=== PATIENT | male | born 2000 | race Hispanic/Latino ===

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

== ENCOUNTER 2024-11-30 10:45 | Emergency (ER) | payer SELFPAY ==
[~2024-11-30] VITALS: Ht 180.3 cm; Wt 189.1 kg
[2024-11-30 10:48] VITALS: BP 160/93; PULSE 105; RESP 18; TEMP 98.3
[2024-11-30] MEDS: BENZONATATE 100 MG CAPSULE PO STA (11:21)
[2024-11-30] MEDS: FAMOTIDINE 20MG VIAL IV STA (11:22)
[2024-11-30] MEDS: ketOROlac 15MG/ML VIAL (15MG/ML) IV STA (11:22)
[2024-11-30] MEDS: acetaMINOPHEN 325 MG TAB PO STA (11:22)
[2024-11-30] MEDS: 0.9%NACL 1000ML 1,000 ML IV STA (11:23)
--- NOTE | 2024-11-30 11:26 | ERN ---
ED Note History of Present Illness Stated Complaint: BACK PAIN, ABD PAIN, CHILLS Chief Complaint: Cough Time Seen by MD: 10:50 Time Seen by Midlevel: 10:55 Dictation: 24 y/o male without no medical history coming c/o cough, congestion, chills, fever since Friday. Pt states he recently took care of his niece that had similar symptoms. Denies any n/v, states has had 1 episode of loose stools, non bloody. Denies any SOB, CP, RODRIGUEZ, Neck pain. Allergies: Coded Allergies: No Known Drug Allergies (Unverified Allergy, Unknown, 04/11/19) Past Medical History Past Medical History: No Pertinent History Surgical History: None Review of System Dictation CONSTITUTIONAL: Positive chills, positive fever, no weakness, no diaphoresis, no malaise. HEAD/FACE: No signs of trauma. EENT: No eye pain, no blurred vision, no tearing, no double vision, no ear pain, no ear discharge, no nose pain, no nasal congestion, no throat pain, no throat swelling, no mouth pain. RESPIRATORY: Positive cough, no orthopnea, no SOB, no stridor, no wheezing. CARDIOVASCULAR: No chest pain, no edema, no palpitations, no syncope. GASTROINTESTINAL/ABDOMINAL: No abdominal pain, no constipation, no diarrhea, no nausea, no vomiting. GENITOURINARY: No abnormal discharge, no dysuria, no frequent urination, no hematuria. No complaints of pain in the genitals. MUSCULOSKELETAL: No back pain, no gout, no joint pain, no joint swelling, no muscle pain, no muscle stiffness, no neck pain. INTEGUMENTARY: No change in color, no change in hair/nails, no dryness, no lesion, no lumps, no rash. NEUROLOGICAL/PSYCH: No anxiety, not depressed, no emotional problem, no headache, no numbness, no pre-existing deficit, no history of seizures, no tremors, no weakness. HEMATOLOGIC/LYMPHATIC: Not anemic, no history of blood clots, no apparent bleeding, no bruising, glands not swollen. All Systems Negative, Except as Noted. Review of Systems: was completed Initial Vital Sign VS Vital Signs Date Time Temp Pulse Resp B/P (MAP) Pulse Ox O2 Delivery O2 Flow Rate FiO2 11/30/24 10:48 98.2 105 18 160/93 99 Room Air 0 Physical Exam Dictation VITAL SIGNS: Reviewed. GENERAL APPEARANCE: Alert, oriented x3, no acute distress, obese. HEAD AND FACE: Non-traumatic. EYES: PERRL, pink conjunctivas, eyelid no trauma, anterior chamber clear. EARS: Pinnas intact and no signs of trauma or erythema. Ear canals clear and no discharge. TMs no erythema. NOSE: No discharge, no bleeding. OROPHARYNX: Mouth normal, teeth no caries, tongue pink. Pharynx clear, no erythema. Tonsils no exudates, no abscesses noted. Mucous membrane moist. NECK: Supple, non-tender, no thyromegaly, no masses, no JVD, no bruits. BREAST: Deferred. CHEST: No tenderness, no crepitus, no paradoxical movement, no retractions. LUNGS: Clear, well-ventilated, symmetric, no rales, no wheezing, no rhonchi, no stridor, good breath sounds bilaterally. HEART: Regular rate, regular rhythm, no murmur, no gallops. VASCULAR: No peripheral edema. ABDOMEN: Soft, positive bowel sounds, nondistended, no guarding, nontender, no rebound, no masses no hepatomegaly, no splenomegaly, no Woodward's sign, no hernias. RECTAL: Deferred. GENITAL: Deferred. NEUROLOGICAL: Normal speech, gross motor function intact, gross sensory function intact. MUSCULOSKELETAL: Neck nontender, full range of motion, back nontender, full range of motion. EXTREMITIES: Nontender, full range of motion. SKIN: Color pink, dry, no turgor, no rash, no lacerations, no abrasions, no contusions. LYMPHATICS: Deferred. Results (Laboratory/Radiology) Laboratory/Radiology Laboratory Tests Test 11/30/24 10:55 Influenza Type A Antigen Negative For Type A Influenza Type B Antigen Negative For Type B SARS-CoV-2, RNA, NAAT NEGATIVE SARS CoV-2 Group A Streptococcus Rapid negative (NEGATIVE) Labs Reviewed?: Yes ED Course ED Course Orders Procedure Category Date Status Time Influenza Type A & B, LAB 11/30/24 Complete Rapid 10:59 Covid Rna Naat LAB 11/30/24 Complete 10:59 Rapid (Group A Strep) LAB 11/30/24 Complete 10:59 0.9%Nacl 1000ml (Ns PHA 11/30/24 Complete 1000ml) 10:59 Acetaminophen 325 Tab PHA 11/30/24 Complete (Tylenol 325mg Tab 10:59 Ketorolac PHA 11/30/24 Complete Tromethamine 15mg/Ml 10:59 Famotidine 20mg Vial PHA 11/30/24 Complete (Pepcid 20mg Vial) 10:59 Benzonatate 100 Mg PHA 11/30/24 Complete Capsule (Tessalon 100 10:59 Current Medications Medications (Trade) Dose Ordered Sig/Mauricio Route PRN Reason Start Time Stop Time Status Last Admin Dose Admin Acetaminophen (TYLenol 325MG TAB) 650 mg ONCE STAT PO 11/30/24 10:59 11/30/24 11:03 DC 11/30/24 11:22 Benzonatate (Tessalon 100mg Caps) 200 mg ONCE STAT PO 11/30/24 10:59 11/30/24 11:03 DC 11/30/24 11:21 Famotidine (Pepcid 20mg Vial) 20 mg ONCE STAT IV 11/30/24 10:59 11/30/24 11:03 DC 11/30/24 11:22 Ketorolac Tromethamine (toRADol) 15 mg ONCE STAT IV 11/30/24 10:59 11/30/24 11:03 DC 11/30/24 11:22 Sodium Chloride 1,000 ml @ 1,000 mls/hr Q1H STAT IV 11/30/24 10:59 11/30/24 11:58 DC 11/30/24 11:23 Vital Signs Date Time Temp Pulse Resp B/P (MAP) Pulse Ox O2 Delivery O2 Flow Rate FiO2 11/30/24 10:48 98.2 105 18 160/93 99 Room Air 0 Medical Decision Making MDM MDM: 24 y/o male without no medical history coming c/o cough, congestion, chills, fever since Friday. Pt states he recently took care of his niece that had similar symptoms. Denies any n/v, states has had 1 episode of loose stools, non bloody. Denies any SOB, CP, RODRIGUEZ, Neck pain. Swabs are negative. Discussed with the patient this could be viral syndrome, educated symptomatic control [id number] like Tylenol, Motrin, Mucinex, Sudafed. Patient verbalized understanding, angina questions. Differential diagnosis: Influenza, COVID, strep, viral syndrome, URI Rationale: Tests considered and ordered secondary to shared decision making include: Previous outside records reviewed: Old ER visits. Risk of complication and/or morbidity or mortality of patient management: None Medications-Per medication reconciliation Need for hospitalization: Patient does not meet criteria for hospitalization. Need for emergency major/minor surgery: No There are no social concerns with this patient. Prescription drug management Prescriptions will include symptomatic care Patient's prior external medical records from other ER visits were reviewed by me as indicated. Prior testing and results from previous visits were reviewed. Prior tests were taken into account with medical decision making and resource utilization, independent historian/historians were used to obtain complete medical history. I independently interpreted the test that were performed, results were reviewed by me and considered findings on radiology if ordered. Medical management and examination interpretation discussions were had by me with other qualified healthcare professionals as indicated for the patient's care. DX & DISP Disposition: Discharge Departure Impression: Primary Impression: Viral syndrome Condition: Stable Additional Instructions: Your swabs are negative. More than likely this is viral syndrome. No need for antibiotics. Can take [id number] medications like Tylenol, Motrin, cough medication, recent echo state of five for congestion. Stay hydrated. Return to the hospital if you has a any worsening symptoms. Referrals: SELF,REFERRAL (PCP) Time of Disposition: 12:07 I have reviewed the case, and I agree with, Diagnosis and Plan FORTUNATO LOPEZ NP Nov 30, 2024 11:26
[2024-11-30 11:32] LABS: RAPID GROUP A STREP negative (NEGATIVE)
[2024-11-30 11:35] LABS: SARS-CoV-2, RNA, NAAT NEGATIVE SARS CoV-2 (NEGATIVE)
[2024-11-30 11:41] LABS: INFLUENZA TYPE A Negative For Type A (NEGATIVE); INFLUENZA TYPE B Negative For Type B (NEGATIVE)
== END 2024-11-30 12:28 | disposition home or self-care (01) ==
LOC: EDH 10:45
DX: B34.9 Viral infection, unspecified (principal); Z20.822 Contact with and (suspected) exposure to COVID-19
CPT/HCPCS: 99284; 96374; 87635; 96375; 87880; 87804 ×2; J1885; J3490; J7030

== ENCOUNTER 2025-01-24 22:48 | Emergency (ER) | payer SELFPAY ==
[~2025-01-24] VITALS: Ht 177.8 cm; Wt 216.4 kg
--- NOTE | 2025-01-24 23:22 | ERN ---
ED Note History of Present Illness Stated Complaint: C/O LUQ PAIN WITH HEADACHE Chief Complaint: Abdominal Pain Time Seen by MD: 22:50 Time Seen by Midlevel: 22:50 Dictation: The patient is a 24-year-old male with no past medical history who presents to the emergency department with complaints of left upper abdominal pain, low appetite onset today. Patient reports pain started after he sneezed. Reports that he has been having nasal congestion and nonproductive cough since yesterday. Denies any fevers, denies any diarrhea or vomiting. Allergies: Coded Allergies: No Known Drug Allergies (Unverified Allergy, Unknown, 04/11/19) Past Medical History Past Medical History: No Pertinent History Surgical History: None RN Note Reviewed/Agreed w/PFSH: Yes Review of System Dictation Constitutional: Negative for fever,chills, and weight loss Eyes: Negative for injury, pain,redness, and discharge ENT: Negative for injury,pain or swelling Cardiovascular: Negative for chest pain, palpitations, and edema Respiratory: Negative for shortness of breath,and wheezing, positive for cough, congestion Abdomen/GI: Negative for , nausea, vomiting, diarrhea, and constipation positive for abdominal pain Back: Negative for injury and pain : Negative for injury, bleeding and discharge MS/Extremity: Negative for injury and deformity Skin: Negative for rash, and discoloration Neuro: Negative for headache, weakness, numbness, tingling, and seizure Psych: Negative for suicide ideation, homicidal ideation, and hallucinations Initial Vital Sign VS Vital Signs Date Time Temp Pulse Resp B/P (MAP) Pulse Ox O2 Delivery O2 Flow Rate FiO2 01/24/25 22:49 98.4 82 24 160/70 98 Room Air 01/24/25 23:50 0 21 Physical Exam Dictation Vital Signs reviewed General Appearance: Alert, oriented x 3, no acute distress, well developed, no urished. Head and Face: non-traumatic. Eyes: PERRL, pink conjunctivas, eyelid no trauma, anterior chamber with arcus senilis. Ears: Pinnas intact and no signs of trauma or erythema ear canals clear and no discharge TM no erythema Nose: No discharge, no bleeding. Oropharynx: Mouth normal, tongue pink. pharynx clear,no erythema, tonsils no exudates, no abscesses noted, mucous me mbrane moist Neck: Supple, non-tender, no thyromegaly, no masses, no JVD, no bruits Breast:Deferred Chest:No tenderness, no crepitus, no paradoxical movement, no retractions Lungs:Clear, well-ventilated, symmetric, no rales, no wheezing, no rhonchi, no stridor, good breath sounds bilaterally Heart: Regular rate, regular rhythm, no murmur, no gallops Vascular: no peripheral edema, Abdomen: Soft, positive bowel sounds, nondistended, no guarding, If upper abdominal tenderness, no rebound, no masses no hepatomegaly, no splenomegaly, no Woodward's sign, no hernias. Rectal: Deferred Genital: Deferred Neurological: Normal speech, motor function intact, sensory function intact Musculoskeletal: Neck nontender, full range of motion, back nontender, full range of motion, Extremities: nontender, full range of motion Skin: Color pink, dry, no turgor, no rash, no lacerations, no abrasions, no contusions. Lymphatic: Deferred Results (Laboratory/Radiology) Laboratory/Radiology Laboratory Tests Test 01/24/25 23:37 01/25/25 00:06 Influenza Type A Antigen Negative For Type A Influenza Type B Antigen Negative For Type B SARS-CoV-2 Antigen (Rapid) PRESUMPTIVE NEGATIVE White Blood Count 7.5 K/uL (4.8-10.8) Red Blood Count 4.83 MIL/uL (4.50-6.20) Hemoglobin 14.2 g/dL (14.0-18.0) Hematocrit 42.4 % (42-54) Mean Corpuscular Volume 87.8 fL (79-99) Mean Corpuscular Hemoglobin 29.4 pg (27.0-33.0) Mean Corpuscular Hemoglobin Concent 33.5 g/dL (32.0-36.0) Red Cell Distribution Width 14.4 % (11.0-15.5) Platelet Count 227 K/uL (130-400) Mean Platelet Volume 9.0 fL (7.5-10.5) Immature Granulocyte % (Auto) 0.3 % (0-1) Neutrophils (%) (Auto) 45.3 % (40.0-77.0) Lymphocytes (%) (Auto) 32.7 % (21.0-51.0) Monocytes (%) (Auto) 13.7 % (3.0-13.0) H Eosinophils (%) (Auto) 7.1 % (0.0-8.0) Basophils (%) (Auto) 0.9 % (0.0-5.0) Neutrophils # (Auto) 3.4 K/uL (1.8-7.7) Lymphocytes # (Auto) 2.4 K/uL (1.0-4.8) Monocytes # (Auto) 1.0 K/uL (0.1-1.0) Eosinophils # (Auto) 0.53 K/uL (0.00-0.70) Basophils # (Auto) 0.07 K/uL (0.00-0.20) Absolute Immature Granulocyte (auto 0.02 K/uL (0-1) Nucleated Red Blood Cells 0.0 % (0.0-0.19) Sodium Level 139 mmol/L (136-145) Potassium Level 4.3 mmol/L (3.5-5.1) Chloride Level 103 mmol/L (101-111) Carbon Dioxide Level 26 mmol/L (21-32) Blood Urea Nitrogen 13 mg/dL (7-18) Creatinine 0.8 mg/dL (0.5-1.3) Glomerular Filtration Rate Calc 128 mL/min (>90) Random Glucose 107 mg/dL (70-105) H Total Calcium 8.7 mg/dL (8.5-10.1) Total Bilirubin 0.4 mg/dL (0.2-1.0) Direct Bilirubin 0.1 mg/dL (0.0-0.3) Aspartate Amino Transf (AST/SGOT) 61 U/L (10-37) H Alanine Aminotransferase (ALT/SGPT) 83 U/L (12-78) H Alkaline Phosphatase 111 U/L (50-136) Total Protein 8.0 g/dL (6.0-8.3) Albumin 3.8 g/dL (3.5-5.0) Lipase 33 U/L (16-77) REASON: pain ORDERING PHYSICIAN: MAME DANIELS AUTOMOBILE ENGINE ASSEMBLER PROCEDURE: RIB LT W C - RIBS UNI LT W PA CHEST 3+VWS EXAM: CR Chest and Left Ribs, 5 Views in Total. CLINICAL HISTORY: Pain. COMPARISON: None provided. FINDINGS: The lungs show no infiltrates or other acute findings. No pleural effusion or pneumothorax. The cardiomediastinal silhouette is within normal limits. No acute osseous abnormality. No acute left rib fractures. IMPRESSION: No acute cardiopulmonary pathology is evident. No acute left rib fractures. /[place] Labs Reviewed?: Yes ED Course ED Course Orders Procedure Category Date Status Time Cbc With Differential LAB 01/24/25 Complete 23:01 Lipase LAB 01/24/25 Complete 23:01 Basic Metabolic Panel LAB 01/24/25 Complete 23:01 Hepatic Function Panel LAB 01/24/25 Complete 23:01 Urinalysis Profile LAB 01/24/25 Logged 23:01 Ribs Uni Lt W Pa RAD 01/24/25 Resulted Chest 3+Vws 23: Covid19 (Sars Antigen LAB 01/24/25 Complete Rapid) 23:01 Influenza Type A & B, LAB 01/24/25 Complete Rapid 23:01 Ketorolac 60mg/2ml PHA 01/24/25 Complete (Toradol 60mg/2ml) 23:30 Current Medications Medications (Trade) Dose Ordered Sig/Mauricio Route PRN Reason Start Time Stop Time Status Last Admin Dose Admin Ketorolac Tromethamine (toRADol 60MG/ 2ML) 60 mg ONCE ONCE IM 01/24/25 23:30 01/24/25 23:31 DC 01/25/25 00:52 Vital Signs Date Time Temp Pulse Resp B/P (MAP) Pulse Ox O2 Delivery O2 Flow Rate FiO2 01/24/25 23:50 99.1 87 16 135/98 99 Room Air* 0 21 01/24/25 22:49 98.4 82 24 160/70 98 Room Air Medical Decision Making MDM The patient is a 24-year-old male with no past medical history who presents to the emergency department with complaints of left upper abdominal pain, low appetite onset today. Patient reports pain started after he sneezed. Reports that he has been having nasal congestion and nonproductive cough since yesterday. Denies any fevers, denies any diarrhea or vomiting. CBC showed no leukocytosis, no anemia, chemistry showed no electrolyte imbalance, mildly elevated liver enzymes but patient with no right upper quadrant tenderness, negative lipase, normal renal function chest x-ray showed no acute pathology. Patient complaints of left lower rib area pain after he sneezed. Reports pain is worse with movement. This is more likely musculoskeletal. Patient in no acute distress, nontoxic appearance patient will be discharged to follow up with PCP. Differential diagnosis: Rib fracture, pneumonia, upper respiratory infection, gastritis Need for hospitalization: Patient does not meet criteria for hospitalization. There are no social concerns with this patient. DX & DISP Disposition: Discharge Departure Impression: Primary Impression: URI (upper respiratory infection) Additional Impression: Rib pain on left side Condition: Stable Scripts Cyclobenzaprine HCl (Flexeril) 10 Mg Tab 10 MG PO TID for muscle sstiffness, #14 TAB 0 Refills Prov: MAME DANIELS 01/25/25 Ibuprofen (Ibuprofen) 600 Mg Tablet 600 MG PO Q6H PRN for PAIN, #15 TAB Prov: MAME DANIELS 01/25/25 Additional Instructions: Your labs were unremarkable. Your chest x-ray was normal. Your symptoms are probably more related muscular pain. Please take your medications as prescribed. Follow up with your primary doctor if anything worsens please return to ER. FOLLOW-UP WITH PRIMARY CARE PROVIDER IN 1 TO 2 DAYS. TAKE MEDICATIONS DIRECTED HERE IN THE EMERGENCY ROOM. OKAY TO CONTINUE HOME MEDICATIONS UNLESS OTHERWISE DISCUSSED DURING YOUR VISIT IN THE EMERGENCY ROOM TODAY. RETURN TO YOUR NEAREST EMERGENCY ROOM IF SYMPTOMS WORSEN OR IF THERE IS NO IMPROVEMENT. CALL 911 IF YOU NEED IMMEDIATE ASSISTANCE. TAKE TYLENOL [id number] NEEDED AND IF NO CONTRAINDICATIONS ARE PRESENT. INCREASE ORAL HYDRATION. A WOUND CULTURE OR URINE CULTURE WAS ORDERED HERE IN THE EMERGENCY ROOM DEPARTMENT PLEASE FOLLOW-UP WITH PRIMARY CARE PROVIDER AND ADVISE THEM TO GET REPEAT PORTS FROM OUR FACILITY. IF YOU HAD ANY BASHIR WRAP/SPLINTS THAT WERE APPLIED HERE, PLEASE DO NOT REMOVE THEM UNTIL YOU SEE YOUR PRIMARY CARE OR SPECIALTY. Referrals: SELF,REFERRAL (PCP) Time of Disposition: 01:13 I have reviewed the case, and I agree with, Diagnosis and Plan MAME DANIELS Jan 24, 2025 23:22
--- NOTE | 2025-01-24 23:34 | NUR ---
PT CARE ASSUMED AT THIS TIME
[2025-01-25 00:03] LABS: COVID19 (SARS ANTIGEN RAPID) PRESUMPTIVE NEGATIVE (NEGATIVE)
[2025-01-25 00:04] LABS: INFLUENZA TYPE A Negative For Type A (NEGATIVE); INFLUENZA TYPE B Negative For Type B (NEGATIVE)
[2025-01-25 00:12] LABS: IMMATURE GRANULOCYTE ABSOLUTE 0.02 K/uL (0-1); NUCLEATED RED BLOOD CELLS 0.0 % (0.0-0.19); PLATELET COUNT (AUTO) 227 K/uL (130-400); RED BLOOD CELL COUNT(AUTO) 4.83 MIL/uL (4.50-6.20); RED CELL DISTRIBUTION WIDTH 14.4 % (11.0-15.5); WHITE BLOOD COUNT (AUTO) 7.5 K/uL (4.8-10.8)
--- NOTE | 2025-01-25 00:15 | HMCIMG ---
EXAM: CR Chest and Left Ribs, 5 Views in Total. CLINICAL HISTORY: Pain. COMPARISON: None provided. FINDINGS: The lungs show no infiltrates or other acute findings. No pleural effusion or pneumothorax. The cardiomediastinal silhouette is within normal limits. No acute osseous abnormality. No acute left rib fractures. IMPRESSION: No acute cardiopulmonary pathology is evident. No acute left rib fractures. /[place]
[2025-01-25 00:20] LABS: CREATININE 0.8 mg/dL (0.5-1.3); GLOMERULAR FILTR. RATE CALC 128.0 mL/min (>90); GLUCOSE,RANDOM 107.0 mg/dL (70-105); SODIUM SERUM 139.0 mmol/L (136-145); UREA NITROGEN, BLOOD 13.0 mg/dL (7-18)
[2025-01-25 00:24] LABS: ASPARTATE AMINOTRANSFERASE 61.0 U/L (10-37); TOTAL PROTEIN, SERUM 8.0 g/dL (6.0-8.3)
[2025-01-25] MEDS ORDERED: IBUP-1492 PO (01:14)
[2025-01-25] MEDS ORDERED: CYCL10TA16 PO (01:14)
[2025-01-25 02:00] VITALS: BP 137/84; PULSE 75; RESP 17; TEMP 99; O2SAT 99
== END 2025-01-25 02:00 | disposition home or self-care (01) ==
LOC: EDH 22:48
DX: J06.9 Acute upper respiratory infection, unspecified (principal); R07.81 Pleurodynia; Z20.822 Contact with and (suspected) exposure to COVID-19; Z79.899 Other long term (current) drug therapy
CPT/HCPCS: 99284; 87426; 80076; 80048; 83690; 85025; 87804 ×2; 36415; 71101; 96372; J1885; 99285

== ENCOUNTER 2025-02-06 16:45 | Emergency (ER) | payer SELFPAY ==
[~2025-02-06] VITALS: Ht 177.8 cm; Wt 190.5 kg
[~2025-02-06 16:45] MED LIST: CYCL10TA16 PO; IBUP-1492 PO
[2025-02-06] MEDS ORDERED: DOXY-466 PO (17:02)
[2025-02-06 17:03] VITALS: BP 145/90; PULSE 92; RESP 16; TEMP 98.3; O2SAT 98
--- NOTE | 2025-02-06 17:03 | ERN ---
ED Note History of Present Illness Stated Complaint: TOE PAIN Chief Complaint: Toe Pain/Injury Time Seen by MD: 16:48 Dictation: 24-YEAR-OLD MALE PRESENTS TO ER COMPLAINS OF LEFT 3RD TOE WITH REDNESS AND SWELLING X2 DAYS. PATIENT HAS HISTORY OF ATHLETE'S FOOT. Allergies: Coded Allergies: No Known Drug Allergies (Unverified Allergy, Unknown, 04/11/19) Home Meds Active Scripts Doxycycline Monohydrate (Doxycycline Monohydrate) 100 Mg Capsule, 1 CAP PO BID for 10 Days, #20 CAP 0 Refills Prov:ELISHA LANGE PATIENT FINANCIAL COUNSELOR 02/06/25 Cyclobenzaprine HCl (Flexeril) 10 Mg Tab, 10 MG PO TID for muscle sstiffness, #14 TAB 0 Refills Prov:MAME DANIELS EDUCATIONAL SIGN LANGUAGE INTERPRETER 01/25/25 Ibuprofen (Ibuprofen) 600 Mg Tablet, 600 MG PO Q6H PRN for PAIN, #15 TAB Prov:MAME DANIELS EDUCATIONAL SIGN LANGUAGE INTERPRETER 01/25/25 Past Medical History Past Medical History: No Pertinent History Surgical History: None Review of System Dictation CONSTITUTIONAL: NEGATIVE FOR FEVER,CHILLS, AND WEIGHT LOSS EYES: NEGATIVE FOR INJURY, PAIN,REDNESS, AND DISCHARGE ENT: NEGATIVE FOR INJURY,PAIN OR SWELLING CARDIOVASCULAR: NEGATIVE FOR CHEST PAIN, PALPITATIONS, AND EDEMA RESPIRATORY: NEGATIVE FOR SHORTNESS OF BREATH, COUGH, WHEEZING, AND PLEURITIC CHEST PAIN ABDOMEN/GI: NEGATIVE FOR ABDOMINAL PAIN, NAUSEA, VOMITING, DIARRHEA, AND CONSTIPATION BACK: NEGATIVE FOR INJURY AND PAIN : NEGATIVE FOR INJURY, BLEEDING AND DISCHARGE MS/EXTREMITY: NEGATIVE FOR INJURY AND DEFORMITY SKIN: POSITIVE FOR REDNESS AND SWELLING LEFT 4TH TOE, VERY SMALL WOUND NOTED WITH MILD OOZING NEURO: NEGATIVE FOR HEADACHE, WEAKNESS, NUMBNESS, TINGLING, AND SEIZURE PSYCH: NEGATIVE FOR SUICIDE IDEATION, HOMICIDAL IDEATION, AND HALLUCINATIONS ALLERGY/IMMUNOLOGY: NEGATIVE FOR HIVES, RASH, AND ALLERGIES Initial Vital Sign VS Vital Signs Date Time Temp Pulse Resp B/P (MAP) Pulse Ox O2 Delivery O2 Flow Rate FiO2 02/06/25 16:46 98.8 97 20 147/99 98 Room Air 02/06/25 17:03 0 21 Physical Exam Dictation GENERAL: AWAKE, ALERT, NAD, OBESE HEAD/FACE: NORMOCEPHALIC, ATRAUMATIC EYES: PERRL, EOMI, VISION AT BASELINE ENT: ORAL CAVITY CLEAR, TMS CLEAR, NO SIGNS OF INFECTION NECK: TRACHEA MIDLINE, SUPPLE, NO NUCHAL RIGIDITY CARDIOVASCULAR: RRR, NORMAL S1/S2, NO MRGS, NO JVD RESPIRATORY: CTAB, NO RESPIRATORY DISTRESS, NO RALES OR WHEEZES ABDOMEN: SOFT, NON-TENDER, NON-DISTENDED, NORMAL BOWEL SOUNDS, NO GUARDING OR REBOUND. SKIN: WARM, DRY, NORMAL TURGOR, LEFT 4TH TOE WITH REDNESS AND SWELLING AND MILD OOZING NOTED FROM A VERY SMALL WOUND. MS/EXTREMITY: PULSES EQUAL, NO CYANOSIS, NEUROVASCULAR INTACT, FROM NEURO: COAX4, GCS 15, STRENGTH 5/5, CN 2-12 INTACT, NORMAL CEREBELLAR EXAM, NORMAL GAIT, PSYCH: NORMAL BEHAVIOR, MOOD, AND AFFECT NORMAL ED Course ED Course Vital Signs Date Time Temp Pulse Resp B/P (MAP) Pulse Ox O2 Delivery O2 Flow Rate FiO2 02/06/25 17:03 98.2 92 16 145/90 98 Room Air* 0 21 02/06/25 16:46 98.8 97 20 147/99 98 Room Air Medical Decision Making MDM 24-YEAR-OLD MALE PRESENTS TO ER COMPLAINS OF LEFT 3RD TOE WITH REDNESS AND SWELLING X2 DAYS. PATIENT HAS HISTORY OF ATHLETE'S FOOT. PATIENT DENIES HAVING HISTORY OF DIABETES. NO FEVER OR STREAKING NOTED TO THE AREA. LOCALIZED INFE CTION WILL BE TREATED WITH OUTPATIENT ORAL ANTIBIOTIC THERAPY. PATIENT ADVISED ON ATHLETE'S FOOT TREATMENT AND REGULAR USE. A 14 POINTS ROS DONE, PERTINENT POSITIVE AND NEGATIVES DESCRIBED IN HPI; ALL OTHERS NEGATIVE. TIME WAS SPENT ON COUNSELING, REVIEWING MEDICAL RECORDS, REVIEWING THE ENTIRE VISIT DOCUMENTATION (INCLUDING ANY COMMENTS THAT MAY HAVE BEEN GIVEN BY THE PATIENT I.E. THE REVIEW OF SYSTEMS) AND COORDINATION OF CARE PATIENT VSS, NAD, NONTOXIC, STABLE FOR DISCHARGE. PT GIVEN DISCHARGE INSTRUCT IONS IN [place] TERMS AND UNDERSTOOD, ALL QUESTIONS ANSWERED. PT WILL FOLLOW UP WITH PCP AND RETURN TO THE ER IF WORSE. DX & DISP Disposition: Discharge Departure Impression: Primary Impression: Abscess, toe Additional Impression: Cellulitis, toe Condition: Stable Scripts Doxycycline Monohydrate (Doxycycline Monohydrate) 100 Mg Capsule 1 CAP PO BID for 10 Days, #20 CAP 0 Refills Prov: ELISHA LANGE NP 02/06/25 Additional Instructions: FOLLOW-UP WITH YOUR PCP IN 24-72 HOURS AND IN THE EVENT IF SYMPTOMS WORSEN OR AN EMERGENCY OVERNIGHT REPORT TO THE ED IMMEDIATELY Referrals: SELF,REFERRAL (PCP) I performed a substantive portion of the visit. I have reviewed and personally made and approve the management plan that is documented in the notes by myself with CONCHIS/resident. I acknowledged full responsibility for the patient's management plan. ELISHA LANGE NP Feb 06, 2025 17:02 TARA FORRESTER DO Feb 06, 2025 18:25
== END 2025-02-06 17:12 | disposition home or self-care (01) ==
LOC: EDH 16:45
DX: L02.612 Cutaneous abscess of left foot (principal)
CPT/HCPCS: 99283